=== PATIENT | male | born 1965 | race Caucasian/White ===

== ENCOUNTER 2018-04-16 06:31 | Emergency (ER) | payer BC ==
[~2018-04-16] VITALS: Ht 175.3 cm; Wt 91.7 kg
[2018-04-16 06:34] VITALS: BP 107/83; PULSE 60; RESP 20; Ht 175.3 cm; Wt 91.7 kg
--- NOTE | 2018-04-16 08:42 | ERD ---
ER Documentation Chief Complaint Chief Complaint Complains of blood in the urine since last night HPI 53-year-old male complaining of gross hematuria since this morning. Patient states that he felt ill burning sensation after urination last night. And this morning, he has to forcefully push to initiate urination. And he noticed dark red blood in the toilet. Patient states that he has nocturia once or twice per night. He is sexually active with 2 partners in the last 12-month. Denies fever or chills. Denies dysuria at this time. Denies urinary urgency. Denies penile or scrotal pain. Denies penile discharge. ROS All systems reviewed and are negative except as per history of present illness. Allergies Allergies: Coded Allergies: Penicillins (Verified Allergy, Intermediate, 04/16/18) PMhx/Soc Medical and Surgical Hx: pt denies Medical Hx, pt denies Surgical Hx Hx Alcohol Use: No Hx Substance Use: No Hx Tobacco Use: Yes (PACK A DAY ) Smoking Status: Current every day smoker Physical Exam Vitals Vital Signs Date Temp Pulse Resp B/P (MAP) Pulse Ox O2 O2 Flow FiO2 Time Delivery Rate 04/16/18 97.0 60 20 107/83 99 06:34 (91) Physical Exam General: Well-developed, well-nourished, conscious and coherent, in no distress Skin: Warm and dry without rash, good texture and turgor Head: Normocephalic without evidence of trauma Chest: Normal AP diameter. Good expansion without retractions. Nontender. Lungs are clear to auscultate bilaterally with good tidal volume Heart: Regular rate and rhythm. No murmur, rub, or gallops heard Abdomen: Soft and nontender without masses, guarding, or rebound. Bowel sounds are active. No hepatosplenomegaly Back: Without spinal or CVA tenderness Extremities: Full range of motion. Good strength bilaterally. No erythema, ecchymosis, or edema. Peripheral pulses are intact. Sensation intact Neuro: Alert and oriented 4, GCS 15. Results 24 hrs Laboratory Tests Test 04/16/18 06:50 Urine Color RED Urine Clarity CLOUDY Urine pH 6.0 Urine Specific [place] 1.021 Urine Ketones NEGATIVE mg/dL Urine Nitrite NEGATIVE mg/dL Urine Bilirubin NEGATIVE mg/dL Urine Urobilinogen NEGATIVE mg/dL Urine Leukocyte Esterase NEGATIVE Stella/ul Urine Microscopic RBC > 182 /HPF Urine Microscopic WBC 164 /HPF Urine Bacteria FEW /HPF Urine Hemoglobin 3+ mg/dL Urine Glucose 1+ mg/dL Urine Total Protein 2+ mg/dl PROCEDURE: US Renal CLINICAL INDICATION: Hematuria TECHNIQUE: Multiple sonographic images of the kidneys and bladder were obtained. Evaluation of the kidneys and bladder was performed as well with westfall scale and color and Doppler evaluation using a curved array transducer. The images were reviewed on a high-resolution PACS workstation. COMPARISON: No prior studies are available for comparison. FINDINGS: The right kidney measures 10.5 cm in length. The left kidney measures 11.2 cm in length. The renal parenchyma demonstrates normal echogenicity. There is a 3 cm cyst within the upper pole of the left kidney. No perinephric fluid collection is seen. The bladder is under distended, but otherwise unremarkable. Multiple prostatic calcifications are noted. IMPRESSION: 1. 3 cm cyst within the upper pole of the left kidney. The kidneys are otherwise unremarkable. 2. Multiple prostatic calcifications. RPTAT: HH .Ute Sevilla MD, MD Date Time Electronically viewed and signed by .Ute Sevilla MD, MD on 04/16/2018 07:57 .G/ CC: JAQUAN RODRIGUES. [employer] Procedures/MDM Well-appearing 53-year-old male presented to ED for gross hematuria times 1 day. UA is negative leukocyte and negative nitrite, I doubt urinary tract infection or pyelonephritis. Renal ultrasound is negative for hydronephrosis, I doubt obstructive urolithiasis. Multiple calcifications of the prostate is noted on renal ultrasound, I suspect this may be the cause of his hematuria. Low suspicion for sexually transmitted infection, however I send out urine for GC/chlamydia testing. Patient is advised to follow-up with his PCP for urology referral for further evaluation. Patient appears well, stable for discharge and outpatient management. Medical decision making shared with patient and family. Education provided to patient and family. Patient and family expressed understanding of the plan. Medications on discharge: None. Follow-up: Primary care provider in 2-3 days or return to ED if worse. Disclaimer: Inadvertent spelling and grammatical errors are likely due to EHR/dictation software use and do not reflect on the overall quality of patient care. Also, please note that the electronic time recorded on this note does not necessarily reflect the actual time of the patient encounter. Departure Diagnosis: Primary Impression: Hematuria Hematuria type: gross Qualified Codes: R31.0 - Gross hematuria Condition: Stable Patient Instructions: Hematuria Referrals: [facility] YOU HAVE RECEIVED A MEDICAL SCREENING EXAM AND THE RESULTS INDICATE THAT YOU DO NOT HAVE A CONDITION THAT REQUIRES URGENT TREATMENT IN THE EMERGENCY DEPARTMENT. FURTHER EVALUATION AND TREATMENT OF YOUR CONDITION CAN WAIT UNTIL YOU ARE SEEN IN YOUR DOCTORS OFFICE WITHIN THE NEXT 1-2 DAYS. IT IS YOUR RESPONSIBILITY TO MAKE AN APPOINTMENT FOR FOLOW-UP CARE. IF YOU HAVE A PRIMARY DOCTOR --you should call your primary doctor and schedule an appointment IF YOU DO NOT HAVE A PRIMARY DOCTOR YOU CAN CALL OUR PHYSICIAN REFERRAL HOTLINE AT IF YOU CAN NOT AFFORD TO SEE A PHYSICIAN YOU CAN CHOSE FROM THE FOLLOWING [facility] [address] [facility] [address] [facility] [address] [facility] [address] [facility] [address] [address] [facility]. [address] Additional Instructions: Call your primary care doctor TOMORROW for an appointment during the next 2-3 days.See the doctor sooner or return here if your condition worsens before your appointment time. You need to follow up with a urologist. Ask your primary providr for a referral. JAQUAN RODRIGUES NP Apr 16, 2018 08:42
== END 2018-04-16 08:53 | disposition home or self-care (01) ==
LOC: FTE 06:31
DX: R31.0 Gross hematuria (principal); R40.2412 Glasgow coma scale score 13-15, at arrival to emergency department; F17.210 Nicotine dependence, cigarettes, uncomplicated
CPT/HCPCS: 76775; 81001; 87591; Z7502